=== PATIENT | male | born 1940 | race Caucasian/White ===

== ENCOUNTER 2022-11-27 15:02 | Outpatient (CLI) | payer MEDICARE ==
[~2022-11-27 15:02] MED LIST: Magnevist 469MG/ML 20 ML VIAL ONE
== END 2022-11-27 15:03 | disposition home or self-care (01) ==
LOC: CSHMRI 15:02
PROVIDERS: ATTEND Orthopaedic Surgery Hand Surgery
DX: M19.032 Primary osteoarthritis, left wrist (principal); M25.832 Other specified joint disorders, left wrist; S63.592A Other specified sprain of left wrist, initial encounter; M25.332 Other instability, left wrist; M89.8X8 Other specified disorders of bone, other site
CPT/HCPCS: A9579

== ENCOUNTER 2023-02-08 11:16 | Emergency (ER) | payer MEDICARE | END 2023-02-08 11:35 | disposition E | LOC: CSHERS 11:16 | DX: I46.9 Cardiac arrest, cause unspecified (principal) | CPT/HCPCS: 31500; 92950 ==